=== PATIENT | male | born 1970 | race Caucasian/White ===

== ENCOUNTER → 2017-07-29 | Outpatient (CLI) | payer OTHER ==
[~2017-07-29] MED LIST: ASPI-COR81 MG PO; ASPIRIN81 M1 PO; ATOXIMETIN-B1 CAP PO; CARAFATE1 G1; CARAFATE1 G1 PO; CITALOPRAM40 MG; CLINDAMYCIN300 MG PO; CLOPIDOGREL75 MG PO; COUMADIN2 M1 PO; COUMADIN2 MG PO; COZAAR50 MG PO; CYMBALTA60 MG PO; DEPLIN7.5 MG PO; DILANTIN PO; DILANTIN100 MG PO; FLEXERIL10 MG PO; Fioricet 325 MG1 TAB PO; GABAPENTIN300 M1 PO; GABAPENTIN300 MG PO; GEODON80 MG; HYDROCODONE BIT1 T11 PO; IMIPRAMINE25 MG PO; INSULIN PUMP; KEFLEX500 MG PO; LANTUS100 U/ML; LANTUS100 U/ML SC; LASIX20 MG PO; LIPITOR20 MG PO; LISINOPRIL2.5 MG PO; LOSARTAN POTASS50 M1 PO; METFORMIN1000 MG PO; MOBIC15 MG PO; MOTRIN800 MG PO; NAPROSYN500 MG PO; NEURONTIN100 MG PO; NOVOLIN R100 U/ML; NOVOLOG 70/30 M10 ML SC; NOVOLOG FLEX100 U/ML; NOVOLOG100 U/ML SC; OMEPRAZOLE20 MG PO; OMEPRAZOLE40 MG PO; PERCOCET 325 MG1 TA7 PO; PLAVIX75 MG PO; PRILOSEC20 MG PO; REQUIP0.5 MG PO; ROPINIROLE; ROPINIROLE HY0.25 MG PO; SIMVASTATIN40 MG PO; TRAMADOL HCL50 MG PO; TRAMADOL50 MG; TRILIPIX45 M1 PO; VICODIN 5/500 505 MG PO; VOLTAREN50 MG PO; ZESTRIL2.5 MG PO; ZETIA10 MG PO; ZOCOR20 MG PO; [UNRECOGNIZED DRUG - CODE]
== END | disposition home or self-care (01) ==
LOC: CARD 08:03
DX: R07.9 Chest pain, unspecified (principal)

== ENCOUNTER → 2017-08-18 | Outpatient (CLI) | payer OTHER ==
[2017-08-18 10:54] LABS: BILIRUBIN 1+ (NEGATIVE); BLOOD NEGATIVE (NEGATIVE); CLARITY SL CLOUDY (CLEAR); COLOR YELLOW (YELLOW); GLUCOSE NEGATIVE (NEGATIVE); KETONE TRACE (NEGATIVE); LEUKO ESTERASE NEGATIVE (NEGATIVE); NITRITE NEGATIVE (NEGATIVE); SPECIFIC GRAVITY 1.025 (1.005-1.030)
[2017-08-18 11:21] LABS: ALBUMIN 3.4 gm/dl (3.1-4.5); ALKALINE PHOSPHATASE 127 U/L (45-117); BILIRUBIN, DIRECT 0.1 mg/dL (0.0-0.2); BUN 17 mg/dl (7-24); CHLORIDE 104 mmol/L (98-107); CHOLESTEROL 225 mg/dL (<200); CREATININE 0.89 mg/dL (0.70-1.30); EPITHELIAL CELLS 0-2; HDL CHOLESTEROL 36 mg/dl (40-60); LDL CHOLESTEROL 152 mg/dL (9-159); MUCOUS 3+; POTASSIUM 3.7 mmol/L (3.5-5.1); SGOT/AST 42 IU/L (3-35); SGPT/ALT 72 U/L (12-78); SODIUM 138 mmol/L (136-145); TOTAL PROTEIN 6.9 gm/dL (6.4-8.2); TRIGLYCERIDES 184 mg/dl (<150); VLDL CHOLESTEROL 37 mg/dL (6-40); WBC 0-2 wbc/hpf (0-5)
[2017-08-18 11:48] LABS: VITAMIN D, 25-HYDROXY 25.7 ng/mL (30-100)
== END | disposition home or self-care (01) ==
LOC: LAB 10:20
PROVIDERS: Internal Medicine
DX: E11.65 Type 2 diabetes mellitus with hyperglycemia (principal); E11.40 Type 2 diabetes mellitus with diabetic neuropathy, unspecified; E78.5 Hyperlipidemia, unspecified; E04.9 Nontoxic goiter, unspecified; E55.9 Vitamin D deficiency, unspecified

== ENCOUNTER → 2017-10-31 | Outpatient (CLI) | payer OTHER | END | disposition home or self-care (01) | LOC: RAD 08:49 | DX: M79.641 Pain in right hand (principal) ==

== ENCOUNTER → 2018-02-22 | Outpatient (CLI) | payer OTHER ==
[2018-02-22 11:13] LABS: BILIRUBIN NEGATIVE (NEGATIVE); BLOOD NEGATIVE (NEGATIVE); CLARITY CLEAR (CLEAR); COLOR YELLOW (YELLOW); GLUCOSE 2+ (NEGATIVE); KETONE TRACE (NEGATIVE); LEUKO ESTERASE NEGATIVE (NEGATIVE); NITRITE NEGATIVE (NEGATIVE); SPECIFIC GRAVITY >= 1.030 (1.005-1.030)
[2018-02-22 11:44] LABS: ALBUMIN 3.4 gm/dl (3.1-4.5); ALKALINE PHOSPHATASE 118 U/L (45-117); BILIRUBIN, DIRECT < 0.1 mg/dL (0.0-0.2); BUN 15 mg/dl (7-24); CHLORIDE 106 mmol/L (98-107); CHOLESTEROL 219 mg/dL (<200); CREATININE 0.83 mg/dL (0.70-1.30); FREE T4 0.87 ng/dl (0.76-1.46); HDL CHOLESTEROL 35 mg/dl (40-60); LDL CHOLESTEROL 144 mg/dL (9-159); SGOT/AST 20 IU/L (3-35); SGPT/ALT 37 U/L (12-78); SODIUM 141 mmol/L (136-145); TOTAL PROTEIN 7.1 gm/dL (6.4-8.2); TRIGLYCERIDES 199 mg/dl (<150); VLDL CHOLESTEROL 40 mg/dL (6-40)
[2018-02-22 12:43] LABS: VITAMIN D, 25-HYDROXY 22.4 ng/mL (30-100)
== END | disposition home or self-care (01) ==
LOC: LAB 10:50
PROVIDERS: Internal Medicine
DX: E11.65 Type 2 diabetes mellitus with hyperglycemia (principal); E04.9 Nontoxic goiter, unspecified; E78.5 Hyperlipidemia, unspecified

== ENCOUNTER 2018-04-04 09:21 | Emergency (ER) | payer OTHER ==
[~2018-04-04] VITALS: Ht 187.9 cm; Wt 115.7 kg
[2018-04-04] MEDS ORDERED: NAPROSYN500 MG PO (09:35)
== END 2018-04-04 11:08 | disposition home or self-care (01) ==
LOC: ED 09:21
DX: M76.62 Achilles tendinitis, left leg (principal); R03.0 Elevated blood-pressure reading, without diagnosis of hypertension; Z98.890 Other specified postprocedural states; Z90.49 Acquired absence of other specified parts of digestive tract; Z79.899 Other long term (current) drug therapy; Z79.82 Long term (current) use of aspirin; Z79.4 Long term (current) use of insulin; Z88.6 Allergy status to analgesic agent; Z88.5 Allergy status to narcotic agent

== ENCOUNTER → 2018-11-23 | Outpatient (CLI) | payer OTHER ==
[~2018-11-23] MED LIST changes: +ATORVASTATIN CA80 M1 PO; +AUGMENTIN 875875 MG PO; +COREG3.125 MG PO; +ETODOLAC ER400 MG PO; +GEMFIBROZIL600 MG PO; +GLUCOPHAGE1000 MG PO; +LOSARTAN POTAS100 M1 PO; -LOSARTAN POTASS50 M1 PO; +MAGNESIUM250 M1 PO; +OMNIPOD DASH1 EACH SQ; +PNV PRENATAL P1 EACH PO; +TRULICITY0.75 MG/0. SC; +VIT D3 PO; +ZANTAC 150150 MG PO; +ZOCOR80 MG PO
== END | disposition home or self-care (01) ==
LOC: US 11-11 10:00 → MRI 11-11 10:00 → US 01:43
DX: I65.23 Occlusion and stenosis of bilateral carotid arteries (principal); G93.89 Other specified disorders of brain; I10 Essential (primary) hypertension; E11.40 Type 2 diabetes mellitus with diabetic neuropathy, unspecified; G40.909 Epilepsy, unspecified, not intractable, without status epilepticus; I73.9 Peripheral vascular disease, unspecified; Z86.69 Personal history of other diseases of the nervous system and sense organs; Z86.73 Personal history of transient ischemic attack (TIA), and cerebral infarction without residual deficits

== ENCOUNTER → 2018-11-29 | Outpatient (CLI) | payer OTHER ==
--- NOTE | ~2018-11-29 | ST ---
[place], [place] EXERCISE STRESS TEST REPORT NAME[id number] UN[facility] #: [id number] ROOM: DOCTOR: ROLANDO PRINCE MD BIRTHDATE: [birth year] DOS: 11/29/2018 The patient worked on the Jagdeep protocol, duration of about 7 minutes 45 seconds. Heart rate is 153, which is 89% predicted heart rate. Baseline cardiogram sinus rhythm with nonspecific ST-T changes. With exercise, no new EKG changes. No chest discomfort. Blood pressure and heart rate response was normal. FINAL IMPRESSION: No chest pain with exercise. No dysrhythmia with exercise. Blood pressure and heart rate response was normal. Nuclear images will be reported separately. ROLANDO PRINCE MD CM:STRESS:EXERCISE STRESS TEST REPORT [id number] ROLANDO PRINCE MD
--- NOTE | 2018-11-29 08:00 | NUR ---
INFORMED CONSENT SIGNED FOR CARDIOLYTE STRESS TEST WITH DR. PRINCE. RESTING EKG NSR, HR 61, BP 124/76. COMPLETED 7:45 OF A TWO MINUTE ELBA PROTOCOL COMPLETING 1:45 STAGE IV, 4.2 MPH/16% GRADE. PEAK HEART RATE OF 152 ACHIEVED WHICH IS 89% PREDICTED MAXIMUM AND A PEAK BP OF 164/90. TEST TERMINATED D/T FATIGUE. HAS A HIGH EXERCISE TOLERANCE. NO ARRHYTHMIAS OR ST CHANGES NOTED. LAST RECOVERY HR 99, BP 134/68. WAITING NUCLEAR SCANNING IN STABLE CONDITION.
== END | disposition home or self-care (01) ==
LOC: CARD 01:10
DX: R94.31 Abnormal electrocardiogram [ECG] [EKG] (principal)

== ENCOUNTER 2019-08-12 16:12 | Emergency (ER) | payer OTHER ==
[~2019-08-12] VITALS: Ht 187.9 cm; Wt 110.2 kg
[2019-08-12] MEDS ORDERED: TYLENOL EXTRA500 MG PO (17:09)
== END 2019-08-12 17:24 | disposition home or self-care (01) ==
LOC: ED 16:12
DX: M17.12 Unilateral primary osteoarthritis, left knee (principal); G89.29 Other chronic pain; Z98.890 Other specified postprocedural states; Z90.89 Acquired absence of other organs; Z88.5 Allergy status to narcotic agent; Z88.6 Allergy status to analgesic agent; Z79.899 Other long term (current) drug therapy; Z79.82 Long term (current) use of aspirin; Z79.4 Long term (current) use of insulin

== ENCOUNTER → 2019-08-28 | Outpatient (CLI) | payer OTHER ==
[~2019-08-28] MED LIST changes: +IMODIUM A-D2 M2 PO; +TYLENOL EXTRA500 MG PO
[2019-08-28 14:40] LABS: BASO # 0.1 10*3/uL (0.0-0.1); BASO % 0.6 % (0.0-1.0); EOS # 0.1 10*3/uL (0.0-0.4); EOS % 1.3 % (1.0-4.0); HEMATOCRIT 43.7 % (42.0-52.0); HEMOGLOBIN 14.6 g/dl (14.0-18.0); LYMPH # 3.1 10*3/uL (1.3-4.4); LYMPH % 37.5 % (27.0-41.0); MEAN CELL VOLUME 95.4 fl (80.0-94.0); MEAN CORPUSCULAR HGB 31.9 pg (27.0-31.0); MEAN CORPUSCULAR HGB CONC 33.4 g/dl (33.0-37.0); MEAN PLATELET VOLUME 10.3 fl (9.6-12.3); MONO # 0.7 10*3/uL (0.1-1.0); MONO % 8.7 % (3.0-9.0); NEUT # 4.3 10*3/uL (2.3-7.9); NEUT % 51.7 % (47.0-73.0); PLATELET COUNT AUTOMATED 546 10*3/uL (130-400); RED BLOOD COUNT 4.58 10*6/uL (4.50-5.90); RED CELL DISTRI WIDTH 12.9 % (0-14.5); WHITE BLOOD COUNT 8.3 10*3/uL (4.8-10.8)
[2019-08-29 05:05] LABS: HEPATITIS B SURFACE AG Negative (Negative); HEPATITIS C VIRUS ANTIBODY 0.2 s/co (0.0-0.9)
[2019-08-29 08:11] LABS: RHEUMATOID ARTHRITIS FACTOR <10.0 IU/mL (0.0-13.9)
[2019-08-29 11:06] LABS: ANTI-RNP ANTIBODIES <0.2 AI (0.0-0.9)
[2019-08-29 22:07] LABS: CCP ANTIBODIES IGG/IGA 55 units (0-19)
[2019-08-30 00:05] LABS: LUPUS DRVVT 40.1 sec (0.0-47.0); PTT-LA 35.3 sec (0.0-51.9)
[2019-08-30 01:07] LABS: LUPUS REFLEX INTERPRETATION Comment: (.)
[2019-08-31 00:09] LABS: IGG P18 AB Present (.); IGG P23 AB Absent (.); IGG P28 AB Absent (.); IGG P30 AB Absent (.); IGG P39 AB Absent (.); IGG P41 AB Absent (.); IGG P45 AB Absent (.); IGG P58 AB Absent (.); IGG P63 AB Absent (.); IGG P66 AB Absent (.); IGM P23 AB Absent (.); IGM P39 AB Absent (.); IGM P41 AB Absent (.); LYME IGG WB INTERPRETATION Negative (.); LYME IGM WB INTERPRETATION Negative (.)
[2019-08-31 08:47] LABS: LYME REFLEX CHARGE CHG
[2019-09-01 15:05] LABS: HLA-B27 ANTIGEN Negative (.)
== END | disposition home or self-care (01) ==
LOC: LAB 13:41
PROVIDERS: Orthopaedic Surgery
DX: M25.50 Pain in unspecified joint (principal)

== ENCOUNTER → 2019-10-06 | Outpatient (CLI) | payer OTHER ==
[~2019-10-06] MED LIST changes: -IMODIUM A-D2 M2 PO
[2019-10-06 14:06] LABS: BILIRUBIN NEGATIVE (NEGATIVE); BLOOD NEGATIVE (NEGATIVE); CLARITY SL CLOUDY (CLEAR); COLOR YELLOW (YELLOW); GLUCOSE 3+ (NEGATIVE); KETONE NEGATIVE (NEGATIVE); LEUKO ESTERASE NEGATIVE (NEGATIVE); NITRITE NEGATIVE (NEGATIVE); SPECIFIC GRAVITY >= 1.030 (1.005-1.030); UROBILINOGEN 0.2 E.U./dl (0.2-1.0)
[2019-10-06 14:18] LABS: MUCOUS TRACE; WBC 0-2 wbc/hpf (0-5)
[2019-10-06 14:19] LABS: BACTERIA TRACE
[2019-10-06 14:37] LABS: ALBUMIN 3.5 gm/dl (3.1-4.5); BUN 11 mg/dl (7-24); CHLORIDE 103 mmol/L (98-107); SODIUM 136 mmol/L (136-145)
[2019-10-06 14:47] LABS: ALKALINE PHOSPHATASE 111 U/L (45-117); BILIRUBIN, DIRECT < 0.1 mg/dL (0.0-0.2); CHOLESTEROL 219 mg/dL (<200); CREATININE 0.94 mg/dL (0.70-1.30); FREE T4 0.78 ng/dl (0.76-1.46); HDL CHOLESTEROL 32 mg/dl (40-60); LDL CHOLESTEROL 147 mg/dL (9-159); SGOT/AST 22 IU/L (3-35); SGPT/ALT 30 U/L (12-78); TOTAL PROTEIN 7.1 gm/dL (6.4-8.2); TRIGLYCERIDES 198 mg/dl (<150); VLDL CHOLESTEROL 40 mg/dL (6-40)
[2019-10-06 15:59] LABS: VITAMIN D, 25-HYDROXY 23.7 ng/mL (30-100)
== END | disposition home or self-care (01) ==
LOC: LAB 13:49
PROVIDERS: Internal Medicine
DX: E11.65 Type 2 diabetes mellitus with hyperglycemia (principal); E11.40 Type 2 diabetes mellitus with diabetic neuropathy, unspecified; E55.9 Vitamin D deficiency, unspecified; E78.5 Hyperlipidemia, unspecified; E04.9 Nontoxic goiter, unspecified

== ENCOUNTER 2019-10-20 08:13 | Emergency (ER) | payer OTHER ==
[~2019-10-20] VITALS: Ht 182.8 cm; Wt 116.1 kg
--- NOTE | ~2019-10-20 | EKG ---
[place], [place] ELECTROCARDIOGRAM REPORT NAME: ARIEL JIMENES UNIT #: [id number] ROOM: DOCTOR: EPIPHANY DRAFT REPORT BIRTHDATE: [birth year] [facility] Test Date: 2019-10-20 Test Time: 08:39:12 Pat Name: ARIEL JIMENES Department: ED Room: Gender: Emergency Management Program Specialist: : [id number] Requested By: ÁNGEL DARBY Order Number: [id number] Reading MD: Malini Fuentes MD Measurements Intervals [place] Rate: 94 P: 83 SD: 149 QRS: 82 QRSD: 87 T: 40 QT: 337 QTc: 422 Interpretive Statements Sinus rhythm ST elev, probable normal early repol pattern Compared to ECG 08/07/2018 10:18:46 No significant changes Electronically Signed On 10-21-2019 9:12:59 PST by aMlini Fuentes MD CM:EKGRPT:ELECTROCARDIOGRAM REPORT ÁNGEL COSTA DRAFT REPORT ÁNGEL DARBY M.D.
[2019-10-20 08:46] LABS: BASO # 0.1 10*3/uL (0.0-0.1); BASO % 0.3 % (0.0-1.0); EOS % 0.2 % (1.0-4.0); HEMATOCRIT 51.5 % (42.0-52.0); HEMOGLOBIN 17.5 g/dl (14.0-18.0); LYMPH # 2.4 10*3/uL (1.3-4.4); LYMPH % 13.6 % (27.0-41.0); MEAN CELL VOLUME 95.5 fl (80.0-94.0); MEAN CORPUSCULAR HGB 32.5 pg (27.0-31.0); MEAN PLATELET VOLUME 9.2 fl (9.6-12.3); MONO # 1.2 10*3/uL (0.1-1.0); MONO % 6.5 % (3.0-9.0); NEUT # 13.9 10*3/uL (2.3-7.9); NEUT % 78.9 % (47.0-73.0); PLATELET COUNT AUTOMATED 452 10*3/uL (130-400); RED BLOOD COUNT 5.39 10*6/uL (4.50-5.90); RED CELL DISTRI WIDTH 13.1 % (0-14.5); WHITE BLOOD COUNT 17.7 10*3/uL (4.8-10.8)
[2019-10-20 09:01] LABS: ALKALINE PHOSPHATASE 125 U/L (45-117); BUN 19 mg/dl (7-24); CHLORIDE 109 mmol/L (98-107); CREATININE 1.36 mg/dL (0.70-1.30); LIPASE 65 U/L (73-393); POTASSIUM 4.4 mmol/L (3.5-5.1); SGOT/AST 19 IU/L (3-35); SGPT/ALT 26 U/L (12-78); SODIUM 137 mmol/L (136-145)
[2019-10-20 10:37] LABS: BILIRUBIN 1+ (NEGATIVE); BLOOD NEGATIVE (NEGATIVE); CLARITY CLOUDY (CLEAR); COLOR YELLOW (YELLOW); GLUCOSE NEGATIVE (NEGATIVE); KETONE TRACE (NEGATIVE); LEUKO ESTERASE NEGATIVE (NEGATIVE); NITRITE NEGATIVE (NEGATIVE); SPECIFIC GRAVITY >= 1.030 (1.005-1.030); UROBILINOGEN 0.2 E.U./dl (0.2-1.0)
[2019-10-20 10:51] LABS: MUCOUS 3+
[2019-10-20 10:53] LABS: BACTERIA 2+
[2019-10-20] MEDS ORDERED: IMODIUM A-D2 M2 PO (12:35)
== END 2019-10-20 13:02 | disposition home or self-care (01) ==
LOC: ED 08:13
PROVIDERS: Emergency Medicine
DX: K52.9 Noninfective gastroenteritis and colitis, unspecified (principal); R56.9 Unspecified convulsions; K21.9 Gastro-esophageal reflux disease without esophagitis; I10 Essential (primary) hypertension; E78.00 Pure hypercholesterolemia, unspecified; E10.40 Type 1 diabetes mellitus with diabetic neuropathy, unspecified; Z88.8 Allergy status to other drugs, medicaments and biological substances; Z88.5 Allergy status to narcotic agent; Z79.899 Other long term (current) drug therapy; Z79.4 Long term (current) use of insulin; Z79.82 Long term (current) use of aspirin; Z90.49 Acquired absence of other specified parts of digestive tract; Z86.718 Personal history of other venous thrombosis and embolism

== ENCOUNTER → 2020-03-02 | Outpatient (CLI) | payer OTHER ==
[~2020-03-02] MED LIST changes: +IMODIUM A-D2 M2 PO
[2020-03-02 13:23] LABS: CLARITY CLOUDY (CLEAR); COLOR YELLOW (YELLOW); GLUCOSE 3+ (NEGATIVE)
[2020-03-02 13:24] LABS: BILIRUBIN NEGATIVE (NEGATIVE); BLOOD NEGATIVE (NEGATIVE); KETONE NEGATIVE (NEGATIVE); LEUKO ESTERASE NEGATIVE (NEGATIVE); NITRITE NEGATIVE (NEGATIVE); PH 6.5 (5.0-9.0); SPECIFIC GRAVITY 1.025 (1.005-1.030); UROBILINOGEN 0.2 E.U./dl (0.2-1.0)
[2020-03-02 13:31] LABS: BACTERIA 1+
[2020-03-02 13:40] LABS: ALBUMIN 3.5 gm/dl (3.1-4.5); ALKALINE PHOSPHATASE 107 U/L (45-117); BILIRUBIN, DIRECT < 0.1 mg/dL (0.0-0.2); BUN 12 mg/dl (7-24); CHLORIDE 107 mmol/L (98-107); CHOLESTEROL 221 mg/dL (<200); CREATININE 0.91 mg/dL (0.70-1.30); FREE T4 0.74 ng/dl (0.76-1.46); HDL CHOLESTEROL 40 mg/dl (40-60); LDL CHOLESTEROL 128 mg/dL (9-159); SGOT/AST 23 IU/L (3-35); SGPT/ALT 51 U/L (12-78); SODIUM 139 mmol/L (136-145); TOTAL PROTEIN 6.9 gm/dL (6.4-8.2); TRIGLYCERIDES 264 mg/dl (<150); VLDL CHOLESTEROL 53 mg/dL (6-40)
[2020-03-02 14:04] LABS: VITAMIN D, 25-HYDROXY 42.9 ng/mL (30-100)
== END | disposition home or self-care (01) ==
LOC: LAB 12:39
PROVIDERS: Internal Medicine
DX: E11.40 Type 2 diabetes mellitus with diabetic neuropathy, unspecified (principal); E78.5 Hyperlipidemia, unspecified; E55.9 Vitamin D deficiency, unspecified; E04.9 Nontoxic goiter, unspecified

== ENCOUNTER → 2020-06-25 | Outpatient (CLI) | payer OTHER | END | disposition home or self-care (01) | LOC: RAD 14:38 | DX: M25.511 Pain in right shoulder (principal) ==

== ENCOUNTER 2020-06-26 20:14 | Inpatient (IN) | payer OTHER ==
[~2020-06-26] VITALS: Ht 188 cm; Wt 115.9 kg
[2020-06-26 20:25] VITALS: BP 151/74
[2020-06-26 20:51] LABS: HEMATOCRIT 43.6 % (42.0-52.0); MEAN CELL VOLUME 93.6 fl (80.0-94.0); MEAN CORPUSCULAR HGB CONC 34.2 g/dl (33.0-37.0); MEAN PLATELET VOLUME 9.7 fl (9.6-12.3); PLATELET COUNT AUTOMATED 469 10*3/uL (130-400); RED BLOOD COUNT 4.66 10*6/uL (4.50-5.90); RED CELL DISTRI WIDTH 13.2 % (0-14.5); WHITE BLOOD COUNT 19.9 10*3/uL (4.8-10.8)
[2020-06-26 21:06] LABS: ALBUMIN 3.6 gm/dl (3.1-4.5); ALKALINE PHOSPHATASE 121 U/L (45-117); BUN 21 mg/dl (7-24); CHLORIDE 104 mmol/L (98-107); CREATININE 1.01 mg/dL (0.70-1.30); POTASSIUM 3.7 mmol/L (3.5-5.1); SGOT/AST 16 IU/L (3-35); SGPT/ALT 30 U/L (12-78); SODIUM 134 mmol/L (136-145)
[2020-06-26 21:11] LABS: BURR CELLS FEW; PLATELET SUFFICIENCY HIGH (NORMAL); TOTAL CELLS COUNTED 100 #CELLS
[2020-06-26 21:35] LABS: BILIRUBIN NEGATIVE (NEGATIVE); BLOOD NEGATIVE (NEGATIVE); CLARITY SL CLOUDY (CLEAR); COLOR YELLOW (YELLOW); GLUCOSE 2+ (NEGATIVE); KETONE TRACE (NEGATIVE); LEUKO ESTERASE NEGATIVE (NEGATIVE); NITRITE NEGATIVE (NEGATIVE); SPECIFIC GRAVITY 1.025 (1.005-1.030); UROBILINOGEN 0.2 E.U./dl (0.2-1.0)
[2020-06-26 21:40] LABS: URINE AMPHETAMINES < 1000 (1000ng/ml); URINE BARBITURATES < 200 (200ng/ml); URINE BENZODIAZEPINES < 200 (200ng/ml); URINE CANNABINOIDS (THC) < 50 (50ng/ml); URINE COCAINE < 300 (300ng/ml); URINE METHADONE < 300 (300ng/ml); URINE OPIATES < 300 (300ng/ml); URINE PHENCYCLIDINE < 25 (25ng/ml)
[2020-06-26 21:56] LABS: BACTERIA TRACE; EPITHELIAL CELLS 0-2; RBC 0-2 rbc/hpf (0-2); WBC 0-2 wbc/hpf (0-5)
[2020-06-27 00:29] VITALS: BP 150/82
[2020-06-27 01:44] VITALS: BP 116/63
[2020-06-27 05:32] LABS: ALBUMIN 2.7 gm/dl (3.1-4.5); ALKALINE PHOSPHATASE 95 U/L (45-117); BUN 21 mg/dl (7-24); CHLORIDE 111 mmol/L (98-107); CHOLESTEROL 114 mg/dL (<200); CREATININE 0.91 mg/dL (0.70-1.30); HDL CHOLESTEROL 31 mg/dl (40-60); LDH 111 U/L (87-241); LDL CHOLESTEROL 65 mg/dL (9-159); POTASSIUM 3.5 mmol/L (3.5-5.1); SGOT/AST 31 IU/L (3-35); SGPT/ALT 33 U/L (12-78); SODIUM 139 mmol/L (136-145); TOTAL PROTEIN 5.4 gm/dL (6.4-8.2); TRIGLYCERIDES 89 mg/dl (<150); VLDL CHOLESTEROL 18 mg/dL (6-40)
[2020-06-27 05:56] LABS: BASO % 0.1 % (0.0-1.0); HEMATOCRIT 37.8 % (42.0-52.0); LYMPH # 1.4 10*3/uL (1.3-4.4); LYMPH % 7.1 % (27.0-41.0); MEAN CELL VOLUME 96.2 fl (80.0-94.0); MEAN CORPUSCULAR HGB 32.3 pg (27.0-31.0); MEAN CORPUSCULAR HGB CONC 33.6 g/dl (33.0-37.0); MEAN PLATELET VOLUME 9.9 fl (9.6-12.3); MONO # 0.8 10*3/uL (0.1-1.0); MONO % 4.1 % (3.0-9.0); NEUT # 16.8 10*3/uL (2.3-7.9); NEUT % 88.1 % (47.0-73.0); PLATELET COUNT AUTOMATED 379 10*3/uL (130-400); RED BLOOD COUNT 3.93 10*6/uL (4.50-5.90); RED CELL DISTRI WIDTH 13.4 % (0-14.5); WHITE BLOOD COUNT 19.1 10*3/uL (4.8-10.8)
[2020-06-27 08:00] VITALS: BP 102/60
[2020-06-27 08:40] LABS: FERRITIN 257.2 ng/mL (22.0-322.0); VITAMIN D, 25-HYDROXY 35.8 ng/mL (30-100)
[2020-06-27 12:00] VITALS: BP 112/63
[2020-06-27 16:00] VITALS: BP 124/69
[2020-06-27 20:00] VITALS: BP 124/64
== END 2020-06-27 21:42 | disposition short-term general hospital (02) | DRG 720 ==
LOC: ED 20:14 → 4E 06-27 00:33 → EDHOLD 06-27 00:33 → 4E 06-27 00:50
PROVIDERS: Internal Medicine; Student in an Organized Health Care Education/Training Program; ADMIT Internal Medicine
DX: A41.9 Sepsis, unspecified organism (principal); Z20.828 Contact with and (suspected) exposure to other viral communicable diseases; D47.3 Essential (hemorrhagic) thrombocythemia; D53.9 Nutritional anemia, unspecified; E83.42 Hypomagnesemia; R79.89 Other specified abnormal findings of blood chemistry; E43 Unspecified severe protein-calorie malnutrition; E87.1 Hypo-osmolality and hyponatremia; E87.2 Acidosis; R65.20 Severe sepsis without septic shock; I10 Essential (primary) hypertension; I25.10 Atherosclerotic heart disease of native coronary artery without angina pectoris; E78.5 Hyperlipidemia, unspecified; K21.9 Gastro-esophageal reflux disease without esophagitis; E11.40 Type 2 diabetes mellitus with diabetic neuropathy, unspecified; E11.65 Type 2 diabetes mellitus with hyperglycemia; A87.9 Viral meningitis, unspecified; G00.9 Bacterial meningitis, unspecified; Z88.5 Allergy status to narcotic agent; Z68.32 Body mass index [BMI] 32.0-32.9, adult; I21.A1 Myocardial infarction type 2

== ENCOUNTER → 2020-08-12 | Outpatient (CLI) | payer OTHER ==
[2020-08-12 12:23] LABS: BILIRUBIN NEGATIVE; BLOOD NEGATIVE (NEGATIVE); CLARITY CLEAR (CLEAR); COLOR YELLOW (YELLOW); GLUCOSE 3+; KETONE NEGATIVE; LEUKO ESTERASE NEGATIVE (NEGATIVE); NITRITE NEGATIVE (NEGATIVE); PH 5.5 (4.5-8.0); SPECIFIC GRAVITY > 1.030 (1.001-1.030)
[2020-08-12 12:30] LABS: EPITHELIAL CELLS 0-2; MUCOUS TRACE; RBC 0-2 rbc/hpf (0-2); WBC 0-2 wbc/hpf (0-5)
[2020-08-12 13:04] LABS: CHLORIDE 101 mmol/L (98-107); POTASSIUM 4.4 mmol/L (3.5-5.1); SODIUM 135 mmol/L (136-145)
[2020-08-12 13:12] LABS: VITAMIN D, 25-HYDROXY 52.4 ng/mL (30-100)
[2020-08-12 13:23] LABS: ALBUMIN 3.6 gm/dl (3.1-4.5); ALKALINE PHOSPHATASE 124 U/L (45-117); BILIRUBIN, DIRECT < 0.1 mg/dL (0.0-0.2); BUN 13 mg/dl (7-24); CHOLESTEROL 161 mg/dL (<200); CREATININE 0.89 mg/dL (0.70-1.30); FREE T4 0.97 ng/dl (0.76-1.46); HDL CHOLESTEROL 39 mg/dl (40-60); LDL CHOLESTEROL 82 mg/dL (9-159); SGOT/AST 20 IU/L (3-35); SGPT/ALT 31 U/L (12-78); TOTAL PROTEIN 7.2 gm/dL (6.4-8.2); TRIGLYCERIDES 198 mg/dl (<150); VLDL CHOLESTEROL 40 mg/dL (6-40)
== END | disposition home or self-care (01) ==
LOC: LAB 11:34
PROVIDERS: ATTEND Internal Medicine
DX: E11.40 Type 2 diabetes mellitus with diabetic neuropathy, unspecified (principal); E78.5 Hyperlipidemia, unspecified; E04.9 Nontoxic goiter, unspecified

== ENCOUNTER → 2020-11-04 | Outpatient (CLI) | payer OTHER | END | disposition home or self-care (01) | LOC: RAD 16:02 | PROVIDERS: ATTEND Nurse Practitioner Primary Care | DX: M25.511 Pain in right shoulder (principal); M25.512 Pain in left shoulder; M25.60 Stiffness of unspecified joint, not elsewhere classified; G89.29 Other chronic pain ==

== ENCOUNTER → 2020-12-04 | Outpatient (CLI) | payer OTHER ==
[2020-12-04 15:58] LABS: BILIRUBIN Negative (Negative); BLOOD Negative (Negative); CLARITY Clear (Clear); COLOR Yellow (Yellow); GLUCOSE 3+ (Negative); KETONE Negative (Negative); LEUKO ESTERASE Negative (Negative); NITRITE Negative (Negative); SPECIFIC GRAVITY >= 1.030 (1.001-1.030); UROBILINOGEN 0.2 E.U./dl (0.0-1.0)
[2020-12-04 16:17] LABS: BACTERIA TRACE; EPITHELIAL CELLS 0-2; RBC 0-2 rbc/hpf (0-2); WBC 0-2 wbc/hpf (0-5)
[2020-12-04 16:30] LABS: ALBUMIN 3.5 gm/dl (3.1-4.5); ALKALINE PHOSPHATASE 132 U/L (45-117); BILIRUBIN, DIRECT < 0.1 mg/dL (0.0-0.2); BUN 12 mg/dl (7-24); CHLORIDE 98 mmol/L (98-107); CHOLESTEROL 195 mg/dL (<200); CREATININE 1.12 mg/dL (0.70-1.30); FREE T4 0.82 ng/dl (0.76-1.46); HDL CHOLESTEROL 37 mg/dl (40-60); LDL CHOLESTEROL 78 mg/dL (9-159); SGOT/AST 14 IU/L (3-35); SGPT/ALT 27 U/L (12-78); SODIUM 131 mmol/L (136-145); TOTAL PROTEIN 7.1 gm/dL (6.4-8.2); TRIGLYCERIDES 400 mg/dl (<150); VLDL CHOLESTEROL 80 mg/dL (6-40)
[2020-12-04 17:57] LABS: VITAMIN D, 25-HYDROXY 22.4 ng/mL (30-100)
== END | disposition home or self-care (01) ==
LOC: LAB 15:40
PROVIDERS: ATTEND Internal Medicine
DX: E78.5 Hyperlipidemia, unspecified (principal); E55.9 Vitamin D deficiency, unspecified; E04.9 Nontoxic goiter, unspecified; E11.40 Type 2 diabetes mellitus with diabetic neuropathy, unspecified

== ENCOUNTER → 2021-06-02 | Outpatient (CLI) | payer OTHER ==
[2021-06-02 09:43] LABS: BILIRUBIN Negative (Negative); BLOOD Negative (Negative); CLARITY Clear (Clear); COLOR Yellow (Yellow); GLUCOSE 3+ (Negative); KETONE Trace (Negative); LEUKO ESTERASE Negative (Negative); NITRITE Negative (Negative); SPECIFIC GRAVITY >= 1.030 (1.001-1.030)
[2021-06-02 09:59] LABS: ALBUMIN 3.5 gm/dl (3.1-4.5); ALKALINE PHOSPHATASE 145 U/L (45-117); BUN 15 mg/dl (7-24); CHLORIDE 105 mmol/L (98-107); CHOLESTEROL 147 mg/dL (<200); CREATININE 0.83 mg/dL (0.70-1.30); FREE T4 0.78 ng/dl (0.76-1.46); LDL CHOLESTEROL 79 mg/dL (9-159); SGOT/AST 14 IU/L (3-35); SGPT/ALT 29 U/L (12-78); SODIUM 135 mmol/L (136-145); TRIGLYCERIDES 139 mg/dl (<150)
[2021-06-02 10:20] LABS: BACTERIA TRACE; MUCOUS 1+; WBC 0-2 wbc/hpf (0-5)
[2021-06-02 10:29] LABS: VITAMIN D, 25-HYDROXY 41.3 ng/mL (30-100)
== END | disposition home or self-care (01) ==
LOC: LAB 09:11
PROVIDERS: ATTEND Internal Medicine
DX: E78.5 Hyperlipidemia, unspecified (principal); E55.9 Vitamin D deficiency, unspecified; E04.9 Nontoxic goiter, unspecified; E11.40 Type 2 diabetes mellitus with diabetic neuropathy, unspecified

== ENCOUNTER → 2021-06-03 | Outpatient (CLI) | payer OTHER ==
[2021-06-04 04:07] LABS: FOLLICLE STIMULATING HORMONE 8.1 mIU/mL (1.5-12.4); LUTEINIZING HORMONE 5.3 mIU/mL (1.7-8.6); PROLACTIN 12.8 ng/mL (4.0-15.2)
== END | disposition home or self-care (01) ==
LOC: LAB 08:38
PROVIDERS: ATTEND Urology
DX: E29.1 Testicular hypofunction (principal); N40.1 Benign prostatic hyperplasia with lower urinary tract symptoms

== ENCOUNTER → 2021-10-23 | Outpatient (CLI) | payer OTHER ==
[2021-10-23 15:43] LABS: BILIRUBIN Negative (Negative); BLOOD Negative (Negative); CLARITY Clear (Clear); COLOR Yellow (Yellow); GLUCOSE 3+ (Negative); KETONE Negative (Negative); LEUKO ESTERASE Negative (Negative); NITRITE Negative (Negative); SPECIFIC GRAVITY >= 1.030 (1.001-1.030)
[2021-10-23 16:06] LABS: ALBUMIN 3.5 gm/dl (3.1-4.5); BUN 14 mg/dl (7-24); CHLORIDE 105 mmol/L (98-107); CHOLESTEROL 247 mg/dL (<200); CREATININE 0.91 mg/dL (0.70-1.30); POTASSIUM 3.9 mmol/L (3.5-5.1); SGOT/AST 20 IU/L (3-35); SGPT/ALT 45 U/L (12-78); SODIUM 136 mmol/L (136-145); TRIGLYCERIDES 415 mg/dl (<150)
[2021-10-23 16:14] LABS: ALKALINE PHOSPHATASE 112 U/L (45-117); FREE T4 0.85 ng/dl (0.76-1.46); TOTAL PROTEIN 6.9 gm/dL (6.4-8.2)
[2021-10-23 16:24] LABS: VITAMIN D, 25-HYDROXY 27.3 ng/mL (30-100)
[2021-10-23 17:15] LABS: EPITHELIAL CELLS 0-2
[2021-10-24 09:07] LABS: LUTEINIZING HORMONE 5.3 mIU/mL (1.7-8.6); PROLACTIN 6.2 ng/mL (4.0-15.2)
== END | disposition home or self-care (01) ==
LOC: LAB 15:20
PROVIDERS: ATTEND Internal Medicine
DX: E03.9 Hypothyroidism, unspecified (principal); E11.40 Type 2 diabetes mellitus with diabetic neuropathy, unspecified; E04.9 Nontoxic goiter, unspecified; E78.5 Hyperlipidemia, unspecified; N52.9 Male erectile dysfunction, unspecified; E55.9 Vitamin D deficiency, unspecified; N40.0 Benign prostatic hyperplasia without lower urinary tract symptoms

== ENCOUNTER 2022-02-24 11:43 | Emergency (ER) | payer OTHER ==
[~2022-02-24] VITALS: Ht 187.9 cm; Wt 116.1 kg
[2022-02-24] MEDS ORDERED: FENOFIBRATE145 M1 PO (11:57)
[2022-02-24] MEDS ORDERED: FINASTERIDE5 M1 PO (11:57)
[2022-02-24] MEDS ORDERED: METFORMIN XR500 MG PO (11:59)
[2022-02-24] MEDS ORDERED: GABAPENTIN100 M2 PO (11:59)
[2022-02-24 12:33] LABS: BASO % 0.4 % (0.0-1.0); EOS # 0.2 10*3/uL (0.0-0.4); EOS % 1.5 % (1.0-4.0); HEMATOCRIT 45.6 % (42.0-52.0); LYMPH # 3.3 10*3/uL (1.3-4.4); LYMPH % 33.6 % (27.0-41.0); MEAN CELL VOLUME 91.2 fl (80.0-94.0); MEAN CORPUSCULAR HGB 31.8 pg (27.0-31.0); MEAN CORPUSCULAR HGB CONC 34.9 g/dl (33.0-37.0); MEAN PLATELET VOLUME 9.4 fl (9.6-12.3); MONO # 1.1 10*3/uL (0.1-1.0); MONO % 10.9 % (3.0-9.0); NEUT # 5.2 10*3/uL (2.3-7.9); NEUT % 53.4 % (47.0-73.0); PLATELET COUNT AUTOMATED 420 10*3/uL (130-400); RED CELL DISTRI WIDTH 12.9 % (0-14.5); WHITE BLOOD COUNT 9.8 10*3/uL (4.8-10.8)
[2022-02-24 12:54] LABS: ALKALINE PHOSPHATASE 156 U/L (45-117); BUN 9 mg/dl (7-24); CHLORIDE 100 mmol/L (98-107); CREATININE 0.92 mg/dL (0.70-1.30); SGOT/AST 28 IU/L (3-35); SGPT/ALT 56 U/L (12-78); SODIUM 133 mmol/L (136-145)
[2022-02-24] MEDS ORDERED: CEPHALEXIN500 M1 PO (15:12)
== END 2022-02-24 15:21 | disposition home or self-care (01) ==
LOC: ED 11:43
PROVIDERS: Physician Assistant
DX: L03.115 Cellulitis of right lower limb (principal); Z88.8 Allergy status to other drugs, medicaments and biological substances; Z79.899 Other long term (current) drug therapy; Z98.890 Other specified postprocedural states

== ENCOUNTER → 2022-04-06 | Outpatient (CLI) | payer OTHER ==
[~2022-04-06] MED LIST changes: +CEPHALEXIN500 M1 PO; +FENOFIBRATE145 M1 PO; +FINASTERIDE5 M1 PO; +GABAPENTIN100 M2 PO; +METFORMIN XR500 MG PO
[2022-04-06 08:26] LABS: BILIRUBIN Negative (Negative); BLOOD Negative (Negative); CLARITY Cloudy (Clear); COLOR Yellow (Yellow); GLUCOSE 2+ (Negative); KETONE Trace (Negative); LEUKO ESTERASE Negative (Negative); NITRITE Negative (Negative); SPECIFIC GRAVITY 1.025 (1.001-1.030)
[2022-04-06 08:34] LABS: ALKALINE PHOSPHATASE 109 U/L (45-117); BUN 13 mg/dl (7-24); CHLORIDE 108 mmol/L (98-107); CHOLESTEROL 190 mg/dL (<200); CREATININE 0.84 mg/dL (0.70-1.30); LDL CHOLESTEROL 119 mg/dL (9-159); POTASSIUM 4.1 mmol/L (3.5-5.1); SGOT/AST 17 IU/L (3-35); SGPT/ALT 28 U/L (12-78); SODIUM 140 mmol/L (136-145); TOTAL PROTEIN 7.1 gm/dL (6.4-8.2); TRIGLYCERIDES 174 mg/dl (<150)
[2022-04-06 10:28] LABS: BACTERIA TRACE; MUCOUS 2+; RBC 0-2 rbc/hpf (0-2)
[2022-04-06 10:40] LABS: VITAMIN D, 25-HYDROXY 37.3 ng/mL (30-100)
[2022-04-07 05:06] LABS: LDL CHOLESTEROL (DIRECT) 138 mg/dL (0-99)
== END | disposition home or self-care (01) ==
LOC: LAB 07:53
PROVIDERS: ATTEND Internal Medicine
DX: E11.40 Type 2 diabetes mellitus with diabetic neuropathy, unspecified (principal); E78.5 Hyperlipidemia, unspecified; R79.89 Other specified abnormal findings of blood chemistry; E55.9 Vitamin D deficiency, unspecified

== ENCOUNTER → 2022-08-06 | Outpatient (CLI) | payer OTHER ==
[2022-08-06 12:20] LABS: BILIRUBIN Negative (Negative); BLOOD Negative (Negative); CLARITY Clear (Clear); COLOR Yellow (Yellow); GLUCOSE 3+ (Negative); KETONE Negative (Negative); LEUKO ESTERASE Negative (Negative); NITRITE Negative (Negative); SPECIFIC GRAVITY >= 1.030 (1.001-1.030); UROBILINOGEN 0.2 E.U./dl (0.0-1.0)
[2022-08-06 12:29] LABS: BACTERIA TRACE; EPITHELIAL CELLS 0-2; WBC 0-2 wbc/hpf (0-5)
[2022-08-06 12:35] LABS: ALKALINE PHOSPHATASE 116 U/L (45-117); BUN 17 mg/dl (7-24); CHLORIDE 105 mmol/L (98-107); CHOLESTEROL 237 mg/dL (<200); CREATININE 1.18 mg/dL (0.70-1.30); POTASSIUM 4.6 mmol/L (3.5-5.1); SGOT/AST 24 IU/L (3-35); SGPT/ALT 53 U/L (12-78); SODIUM 137 mmol/L (136-145); TOTAL PROTEIN 7.2 gm/dL (6.4-8.2); TRIGLYCERIDES 300 mg/dl (<150)
[2022-08-06 12:39] LABS: FREE T4 0.88 ng/dl (0.76-1.46); LDL CHOLESTEROL 140 mg/dL (9-159)
[2022-08-06 12:54] LABS: VITAMIN D, 25-HYDROXY 34.1 ng/mL (30-100)
[2022-08-07 04:06] LABS: PROLACTIN 9.8 ng/mL (4.0-15.2)
== END | disposition home or self-care (01) ==
LOC: LAB 11:55
PROVIDERS: ATTEND Internal Medicine
DX: E10.65 Type 1 diabetes mellitus with hyperglycemia (principal); E78.5 Hyperlipidemia, unspecified; N52.9 Male erectile dysfunction, unspecified; E55.9 Vitamin D deficiency, unspecified; E34.9 Endocrine disorder, unspecified; E04.9 Nontoxic goiter, unspecified

== ENCOUNTER → 2022-11-16 | Outpatient (CLI) | payer OTHER | END | disposition home or self-care (01) | LOC: NM 00:19 | PROVIDERS: ATTEND Internal Medicine | DX: R11.2 Nausea with vomiting, unspecified (principal) ==

== ENCOUNTER → 2023-01-07 | Day surgery (SDC) | payer OTHER ==
[~2023-01-07] VITALS: Ht 187.9 cm; Wt 114.3 kg
[2023-01-07 07:20] VITALS: BP 145/91
[2023-01-07 08:12] VITALS: BP 160/84
[2023-01-07 08:27] VITALS: BP 150/82
[2023-01-07 08:42] VITALS: BP 168/84
== END | disposition home or self-care (01) ==
LOC: SDC 01-04 11:00
PROVIDERS: ATTEND Surgery
DX: Z12.11 Encounter for screening for malignant neoplasm of colon (principal); K62.0 Anal polyp; I10 Essential (primary) hypertension; K21.9 Gastro-esophageal reflux disease without esophagitis; E78.00 Pure hypercholesterolemia, unspecified; Z90.49 Acquired absence of other specified parts of digestive tract; E11.40 Type 2 diabetes mellitus with diabetic neuropathy, unspecified; Z86.73 Personal history of transient ischemic attack (TIA), and cerebral infarction without residual deficits; Z87.891 Personal history of nicotine dependence; Z79.899 Other long term (current) drug therapy; Z98.890 Other specified postprocedural states

== ENCOUNTER → 2023-05-11 | Outpatient (CLI) | payer OTHER ==
[2023-05-11 10:35] LABS: BILIRUBIN Negative (Negative); BLOOD Negative (Negative); CLARITY Clear (Clear); COLOR Yellow (Yellow); GLUCOSE 3+ (Negative); KETONE Negative (Negative); LEUKO ESTERASE Negative (Negative); NITRITE Negative (Negative); PH 5.5 (4.5-8.0); SPECIFIC GRAVITY >= 1.030 (1.001-1.030)
[2023-05-11 10:55] LABS: BACTERIA TRACE; EPITHELIAL CELLS 0-2; RBC 0-2 rbc/hpf (0-2); WBC 0-2 wbc/hpf (0-5)
[2023-05-11 11:13] LABS: ALKALINE PHOSPHATASE 150 U/L (46-116); BUN 11 mg/dl (9-23); CHLORIDE 104 mmol/L (98-107); CHOLESTEROL 208 mg/dL (<200); LDL CHOLESTEROL 134 mg/dL (9-159); POTASSIUM 3.9 mmol/L (3.4-5.1); SGPT/ALT 43 U/L (10-49); THYROID STIM HORMONE (HS) 2.098 uIU/ml (0.550-4.780); TOTAL PROTEIN 6.5 gm/dL (6.0-8.0); TRIGLYCERIDES 178 mg/dl (<150)
[2023-05-11 11:19] LABS: VITAMIN D, 25-HYDROXY 41.5 ng/mL (30-100)
== END | disposition home or self-care (01) ==
LOC: LAB 10:14
PROVIDERS: ATTEND Internal Medicine
DX: E11.40 Type 2 diabetes mellitus with diabetic neuropathy, unspecified (principal); E55.9 Vitamin D deficiency, unspecified; E04.9 Nontoxic goiter, unspecified; R79.89 Other specified abnormal findings of blood chemistry; N52.9 Male erectile dysfunction, unspecified

== ENCOUNTER 2023-07-11 15:04 | Emergency (ER) | payer OTHER ==
[~2023-07-11] VITALS: Wt 116.1 kg
[2023-07-11 15:37] LABS: BASO # 0.1 10*3/uL (0.0-0.1); BASO % 0.6 % (0.0-1.0); EOS # 0.1 10*3/uL (0.0-0.4); EOS % 0.7 % (1.0-4.0); LYMPH # 1.9 10*3/uL (1.3-4.4); LYMPH % 22.9 % (27.0-41.0); MEAN CELL VOLUME 94.4 fl (80.0-94.0); MEAN CORPUSCULAR HGB 32.5 pg (27.0-31.0); MEAN CORPUSCULAR HGB CONC 34.5 g/dl (33.0-37.0); MEAN PLATELET VOLUME 9.4 fl (9.6-12.3); MONO # 0.9 10*3/uL (0.1-1.0); MONO % 11.4 % (3.0-9.0); NEUT # 5.3 10*3/uL (2.3-7.9); NEUT % 64.2 % (47.0-73.0); PLATELET COUNT AUTOMATED 363 10*3/uL (130-400); RED BLOOD COUNT 4.98 10*6/uL (4.50-5.90); RED CELL DISTRI WIDTH 13.2 % (0-14.5); WHITE BLOOD COUNT 8.2 10*3/uL (4.8-10.8)
[2023-07-11 15:45] LABS: BILIRUBIN 1+ (Negative); BLOOD Negative (Negative); CLARITY Clear (Clear); COLOR Dark Yellow (Yellow); GLUCOSE 2+ (Negative); KETONE Trace (Negative); LEUKO ESTERASE Negative (Negative); NITRITE Negative (Negative); SPECIFIC GRAVITY 1.025 (1.001-1.030)
[2023-07-11] MEDS ORDERED: ZETIA10 MG PO (15:47)
[2023-07-11] MEDS ORDERED: INSULIN LI100 UNIT/1 SQ (15:47)
[2023-07-11] MEDS ORDERED: TRICOR145 M1 PO (15:47)
[2023-07-11] MEDS ORDERED: NEURONTIN100 MG PO (15:48)
[2023-07-11] MEDS ORDERED: VITAMIN D3125 MC1 PO (15:48)
[2023-07-11] MEDS ORDERED: PROSCAR5 M1 PO (15:48)
[2023-07-11 15:49] LABS: ACT PARTIAL THROMBO TIME 24.6 SECONDS (20.0-32.1)
[2023-07-11] MEDS ORDERED: DILANTIN100 MG PO (15:49)
[2023-07-11] MEDS ORDERED: VASCEPA1 G1 PO (15:49)
[2023-07-11] MEDS ORDERED: GLUMETZA1000 MG PO (15:50)
[2023-07-11 15:59] LABS: ALKALINE PHOSPHATASE 146 U/L (46-116); BUN 8 mg/dl (9-23); CHLORIDE 107 mmol/L (98-107); LIPASE 29 U/L (12-53); POTASSIUM 3.9 mmol/L (3.4-5.1); SGPT/ALT 22 U/L (10-49); TOTAL PROTEIN 6.8 gm/dL (6.0-8.0)
[2023-07-11 16:10] LABS: BACTERIA 1+; EPITHELIAL CELLS 0-2; MUCOUS 2+
== END 2023-07-11 17:12 | disposition home or self-care (01) ==
LOC: ED 15:04
PROVIDERS: Internal Medicine
DX: T67.01XA Heatstroke and sunstroke, initial encounter (principal); K21.9 Gastro-esophageal reflux disease without esophagitis; I10 Essential (primary) hypertension; E11.9 Type 2 diabetes mellitus without complications; Z79.4 Long term (current) use of insulin; Z90.49 Acquired absence of other specified parts of digestive tract; Z86.718 Personal history of other venous thrombosis and embolism; Z88.5 Allergy status to narcotic agent; Z88.8 Allergy status to other drugs, medicaments and biological substances; Z98.890 Other specified postprocedural states

== ENCOUNTER → 2025-01-08 | Day surgery (SDC) | payer OTHER ==
[~2025-01-08] VITALS: Ht 187.9 cm; Wt 117.0 kg
[~2025-01-08] MED LIST changes: +GLUMETZA1000 MG PO; +INSULIN LI100 UNIT/1 SQ; +Lactated Ringer's Solution 500 ML IV ONE; +Lidocaine Hydrochloride 2% 5 ML SDV IM ONE; +PROPOFOL 200 MG/20 ML VIAL IV ONE; +PROSCAR5 M1 PO; +TRICOR145 M1 PO; +VASCEPA1 G1 PO; +VITAMIN D3125 MC1 PO
[2025-01-08 09:01] VITALS: BP 157/84
[2025-01-08 11:57] VITALS: BP 121/59
[2025-01-08 12:12] VITALS: BP 115/66
[2025-01-08 12:26] VITALS: BP 131/73
== END | disposition home or self-care (01) ==
LOC: SDC 01-05 13:15
PROVIDERS: ATTEND Surgery
DX: Z12.11 Encounter for screening for malignant neoplasm of colon (principal); I10 Essential (primary) hypertension; E10.40 Type 1 diabetes mellitus with diabetic neuropathy, unspecified; F32.A Depression, unspecified; Z86.0100 Personal history of colon polyps, unspecified; Z96.41 Presence of insulin pump (external) (internal); Z86.73 Personal history of transient ischemic attack (TIA), and cerebral infarction without residual deficits; Z87.891 Personal history of nicotine dependence; Z98.890 Other specified postprocedural states; F10.90 Alcohol use, unspecified, uncomplicated; Z79.82 Long term (current) use of aspirin; Z79.84 Long term (current) use of oral hypoglycemic drugs; Z79.899 Other long term (current) drug therapy; Z88.5 Allergy status to narcotic agent; Z88.8 Allergy status to other drugs, medicaments and biological substances; Z82.3 Family history of stroke; Z83.3 Family history of diabetes mellitus

== ENCOUNTER → 2025-01-09 | Outpatient (CLI) | payer OTHER ==
[~2025-01-09] MED LIST changes: +BARIUM SULFATE 105% 750 ML ORAL SUSP ONE; +BARIUM SULFATE 105% 750 ML ORAL SUSP R ONE; -Lactated Ringer's Solution 500 ML IV ONE; -Lidocaine Hydrochloride 2% 5 ML SDV IM ONE; -PROPOFOL 200 MG/20 ML VIAL IV ONE
== END | disposition home or self-care (01) ==
LOC: RAD 07:13
PROVIDERS: ATTEND Nurse Practitioner
DX: Q43.2 Other congenital functional disorders of colon (principal)

== ENCOUNTER → 2025-04-05 | Outpatient (CLI) | payer OTHER ==
[~2025-04-05] MED LIST changes: -BARIUM SULFATE 105% 750 ML ORAL SUSP ONE; -BARIUM SULFATE 105% 750 ML ORAL SUSP R ONE
== END | disposition home or self-care (01) ==
LOC: RAD 10:31
PROVIDERS: ATTEND Internal Medicine
DX: M65.311 Trigger thumb, right thumb (principal)

== ENCOUNTER 2025-06-29 15:27 | Emergency (ER) | payer OTHER ==
[~2025-06-29] VITALS: Ht 187.9 cm; Wt 122.5 kg
[2025-06-29] MEDS ORDERED: Acetaminophen/Oxycodone 5 MG/325 MG TABLET PO ONE (16:10)
== END 2025-06-29 18:45 | disposition home or self-care (01) ==
LOC: ED 15:27
DX: M72.2 Plantar fascial fibromatosis (principal); Z88.6 Allergy status to analgesic agent; Z88.5 Allergy status to narcotic agent; Z79.4 Long term (current) use of insulin; Z79.899 Other long term (current) drug therapy; Z79.84 Long term (current) use of oral hypoglycemic drugs; Z98.890 Other specified postprocedural states

== ENCOUNTER → 2025-10-09 | Outpatient (CLI) | payer OTHER | END | disposition home or self-care (01) | LOC: WOUNDCARE 04:23 | PROVIDERS: ATTEND Nurse Practitioner Family | DX: S81.812A Laceration without foreign body, left lower leg, initial encounter (principal); E10.65 Type 1 diabetes mellitus with hyperglycemia; E10.40 Type 1 diabetes mellitus with diabetic neuropathy, unspecified; E10.51 Type 1 diabetes mellitus with diabetic peripheral angiopathy without gangrene; E78.5 Hyperlipidemia, unspecified; I10 Essential (primary) hypertension; Z87.891 Personal history of nicotine dependence; Z95.818 Presence of other cardiac implants and grafts; Z86.73 Personal history of transient ischemic attack (TIA), and cerebral infarction without residual deficits; W20.8XXA Other cause of strike by thrown, projected or falling object, initial encounter; Y93.89 Activity, other specified; Y92.89 Other specified places as the place of occurrence of the external cause; Y99.8 Other external cause status ==

== ENCOUNTER → 2025-10-16 | Outpatient (CLI) | payer OTHER | END | disposition home or self-care (01) | LOC: WOUNDCARE 03:10 | PROVIDERS: ATTEND Nurse Practitioner Family | DX: S81.812D Laceration without foreign body, left lower leg, subsequent encounter (principal); E10.65 Type 1 diabetes mellitus with hyperglycemia; E10.40 Type 1 diabetes mellitus with diabetic neuropathy, unspecified; E10.51 Type 1 diabetes mellitus with diabetic peripheral angiopathy without gangrene; E78.5 Hyperlipidemia, unspecified; I10 Essential (primary) hypertension; Z87.891 Personal history of nicotine dependence; Z95.828 Presence of other vascular implants and grafts; Z86.73 Personal history of transient ischemic attack (TIA), and cerebral infarction without residual deficits; W31.89XD Contact with other specified machinery, subsequent encounter ==

== ENCOUNTER 2025-11-07 23:01 | Emergency (ER) | payer OTHER ==
[~2025-11-07] VITALS: Ht 187.9 cm; Wt 114.8 kg
[2025-11-08] MEDS ORDERED: LEVOFLOXACIN 750 MG TAB PO ONE (01:10)
[2025-11-08] MEDS ORDERED: LEVOFLOXACIN750 M2 PO (02:07)
== END 2025-11-08 02:23 | disposition home or self-care (01) ==
LOC: ED 23:01
DX: J18.9 Pneumonia, unspecified organism (principal); K21.9 Gastro-esophageal reflux disease without esophagitis; I10 Essential (primary) hypertension; E11.9 Type 2 diabetes mellitus without complications; Z20.822 Contact with and (suspected) exposure to COVID-19; Z90.81 Acquired absence of spleen; Z98.890 Other specified postprocedural states; Z88.5 Allergy status to narcotic agent; Z90.49 Acquired absence of other specified parts of digestive tract